=== PATIENT | female | born 1980 | race Caucasian/White ===

== ENCOUNTER 2018-10-30 20:21 | Emergency (ER) | payer SELFPAY ==
[2018-10-30] MEDS ORDERED: NS 500 ML IV ONE (21:00)
--- NOTE | 2018-10-30 21:03 | EDPHY ---
H & P Time Seen by Provider: 10/30/18 20:29 HPI/ROS: CHIEF COMPLAINT: Syncope, head trauma HISTORY OF PRESENT ILLNESS: Patient is a 38-year-old female presents emergency department after having a syncopal episode and striking her head. Patient states she walked into a concert. She felt hot and dizzy. She felt lightheaded , as though she might faint. She subsequently had a syncopal episode. She struck her head on the floor. She woke up quickly after falling. She denied chest pain or shortness of breath. No abdominal pain. Patient has had 1 previous episode of syncope REVIEW OF SYSTEMS: 10 systems were reveiwed and are negative with the exception of the elements mentioned in the history of present illness. Past medical history: Negative Past surgical history: Femur fracture Social history: Patient smokes THC. She denies alcohol or other drug. Smoking Status: Never smoked Physical Exam: GENERAL: Well-appearing, in no acute distress, alert. HEENT: Eyes normal to inspection, normal pharynx, no signs of dehydration. The patient has a 1 cm laceration of her left brow. She has no bony tenderness to palpation. No hematoma. NECK: Normal, supple. Negative nexus RESPIRATORY: Clear to auscultation bilaterally, no rales, rhonchi or wheezing. CVS: Regular rate and rhythm, no rubs, murmurs, or gallops. ABDOMEN: Soft, nontender, nondistended, no organomegaly. BACK: Normal to inspection, no CVA tenderness. No spinal tenderness SKIN: Normal color, no rash, warm, dry. No pallor. EXTREMITIES: No pedal edema, no calf tenderness, no Homans sign or cords, no joint swelling. NEURO/PSYCH: Higher functions: Alert and Oriented x3. Normal speech and cognition. Normal mood and affect. Cranial nerves: Normal as tested. Cerebellar: Normal as tested. Good finger to nose, good [id number], normal gait. Peripheral exam: Normal motor exam. Normal sensation. Normal reflexes. Constitutional: Initial Vital Signs Temperature (C) 36.7 C 10/30/18 20:24 Heart Rate 68 10/30/18 20:24 Respiratory Rate 14 10/30/18 20:24 Blood Pressure 105/62 10/30/18 20:24 O2 Sat (%) 95 10/30/18 20:24 O2 Delivery Mode Room Air Medical Decision Making - Diagnostics Imaging Results: Imaging Impressions Chest X-Ray 10/30/18 21:00 Impression: No acute findings in the chest. Head CT 10/30/18 21:00 Impression: 1. Left periorbital laceration/hematoma with no acute intracranial findings. 2. Probable left maxillary sinusitis. Findings discussed with JOSÉ Taylor GREGORY 10/30/2018 at 21:32. ED Course/Re-evaluation: In the emergency department discussed possible etiologies with the patient. I answered all her questions. IV was placed. Laboratory studies, head CT and EKG were ordered. Patient was given normal saline 500 mL IV for hydration. EKG shows normal sinus rhythm, normal rate, normal axis, normal intervals. There are no ST or T-wave abnormalities. EKG is normal as interpreted by me. Head CT: Please refer the dictated report by Dr. Jalloh and Jeanne. No acute disease noted. CBC chemistry unremarkable. Troponin is negative. negative. Procedure: Laceration repair. Verbal consent was obtained from the patient. The 1 cm laceration on the left brow was anesthetized in the usual fashion. The wound was irrigated, draped and explored to its base with a gloved finger. There were no deep structures involved.The wound was repaired with 6 0 Prolene. The wound repair was simple. The procedure was performed by myself. I discussed treatment plan with the patient. I gave her warnings prior to leaving. She was given wound care instructions. Differential Diagnosis: My differential includes but is not limited to syncope, ACS, acute NM, dysrhythmia, electrolyte abnormality, sugar abnormality, dehydration - Data Points Laboratory Results: Laboratory Results 10/30/18 20:21 10/30/18 20:21 10/30/18 10/30/18 10/30/18 21:40 20:21 20:21 WBC RBC Hgb Hct MCV MCH MCHC RDW Plt Count MPV Neut % (Auto) Lymph % (Auto) [place] % (Auto) Eos % (Auto) Baso % (Auto) Nucleat RBC Rel Count Absolute Neuts (auto) Absolute Lymphs (auto) Absolute Monos (auto) Absolute Eos (auto) Absolute Basos (auto) Absolute Nucleated RBC Immature Gran % Immature Gran # Sodium 136 mEq/L mEq/L (135-145) Potassium 3.8 mEq/L mEq/L (3.5-5.2) Chloride 100 mEq/L mEq/L (97-110) Carbon Dioxide 24 mEq/l mEq/l (22-31) Anion Gap 12 mEq/L mEq/L (6-14) BUN 15 mg/dL mg/dL (7-23) Creatinine 0.9 mg/dL mg/dL (0.6-1.0) Estimated GFR > 60 Glucose 105 mg/dL H mg/dL (70-100) Calcium 10.2 mg/dL mg/dL (8.5-10.4) POC Troponin I 0.00 ng/mL ng/mL (0.00-0.08) Beta HCG, Qual NEGATIVE 10/30/18 20:21 WBC 8.33 10^3/uL 10^3/uL (3.80-9.50) RBC 4.90 10^6/uL 10^6/uL (4.18-5.33) Hgb 13.3 g/dL g/dL (12.6-16.3) Hct 41.9 % % (38.0-47.0) MCV 85.5 fL fL (81.5-99.8) MCH 27.1 pg L pg (27.9-34.1) MCHC 31.7 g/dL L g/dL (32.4-36.7) RDW 16.0 % H % (11.5-15.2) Plt Count 344 10^3/uL 10^3/uL (150-400) MPV 9.5 fL fL (8.7-11.7) Neut % (Auto) 52.2 % % (39.3-74.2) Lymph % (Auto) 35.1 % % (15.0-45.0) [place] % (Auto) 9.1 % % (4.5-13.0) Eos % (Auto) 2.9 % % (0.6-7.6) Baso % (Auto) 0.5 % % (0.3-1.7) Nucleat RBC Rel Count 0.0 % % (0.0-0.2) Absolute Neuts (auto) 4.35 10^3/uL 10^3/uL (1.70-6.50) Absolute Lymphs (auto) 2.92 10^3/uL 10^3/uL (1.00-3.00) Absolute Monos (auto) 0.76 10^3/uL 10^3/uL (0.30-0.80) Absolute Eos (auto) 0.24 10^3/uL 10^3/uL (0.03-0.40) Absolute Basos (auto) 0.04 10^3/uL 10^3/uL (0.02-0.10) Absolute Nucleated RBC 0.00 10^3/uL 10^3/uL (0-0.01) Immature Gran % 0.2 % % (0.0-1.1) Immature Gran # 0.02 10^3/uL 10^3/uL (0.00-0.10) Sodium Potassium Chloride Carbon Dioxide Anion Gap BUN Creatinine Estimated GFR Glucose Calcium POC Troponin I Beta HCG, Qual Medications Given: Discontinued Medications Sodium Chloride (Ns) 500 mls @ 1,000 mls/hr IV EDNOW ONE PRN Reason: Protocol Stop: 10/30/18 21:29 Last Admin: 10/30/18 21:35 Dose: 500 mls Point of Care Test Results: Chemistry 10/30/18 21:40 POC Troponin I 0.00 ng/mL ng/mL (0.00-0.08) Departure - Departure Disposition: Home, Routine, Self-Care Clinical Impression: Facial laceration Qualifiers: Encounter type: initial encounter Qualified Code(s): S01.81XA - Laceration without foreign body of other part of head, initial encounter Syncope Qualifiers: Syncope type: unspecified Qualified Code(s): R55 - Syncope and collapse Condition: Good Instructions: Syncope (ED), Laceration (ED) Additional Instructions: Return with worsening symptoms or any other concerns. You need your stitches taken out in 8-9 days. Keep your laceration out of the sun. Referrals: Jayjay Ramirez MD [Medical Doctor] - 5-7 days, call for appt.
[2018-10-30 21:08] LABS: PLATELET COUNT 344 10^3/uL (150-400)
[2018-10-30 23:29] VITALS: BP 112/63
--- NOTE | 2018-10-30 23:43 | CPEKG ---
Test Reason : OPEN Blood Pressure : / mmHG Vent. Rate : 067 BPM Atrial Rate : 067 BPM P-R Int : 148 ms QRS Dur : 092 ms QT Int : 385 ms P-R-T Axes : 024 030 051 degrees QTc Int : 407 ms Sinus rhythm Confirmed by José Lopez ([id number] on 10/30/2018 11:42:12 PM Referred By: JOSÉ LOPEZ Confirmed By:José Lopez
== END 2018-10-30 23:29 | disposition home or self-care (01) ==
PROC: 0HQ1XZZ Repair Face Skin, External Approach (ICD-10-PCS; principal; 2018-10-30)
DX: R55 Syncope and collapse (principal); S01.81XA Laceration without foreign body of other part of head, initial encounter; E86.9 Volume depletion, unspecified; W19.XXXA Unspecified fall, initial encounter; Y92.838 Other recreation area as the place of occurrence of the external cause
CPT/HCPCS: 84484-ER